=== PATIENT | female | born 1985 | race Caucasian/White ===

== ENCOUNTER 2017-12-30 23:14 | Emergency (ER) | payer OTHER ==
--- NOTE | 2017-12-31 00:21 | EDPHYS ---
Physician Documentation [facility] Name: Fabiola Espana Age: 32 yrs Sex: Female : 1985 Arrival Date: 12/30/2017 Time: 23:16 Bed 26 Private MD: ED Physician Marvin Block HPI: 12/30 23:59 This 32 yrs old Female presents to ER via Wheelchair with complaints of Fall rn Injury. 23:59 Details of fall: The patient fell from a height, down approximately 3 stairs. Onset: rn The symptoms/episode began/occurred just prior to arrival. Associated injuries: The patient sustained RLE. Severity of symptoms: At their worst the symptoms were moderate, in the emergency department the symptoms are unchanged. The patient has not experienced similar symptoms in the past. The patient has not recently seen a physician. Reports misstep, on stairs, fell down 3, only pain to LLE, no LOC, no head injury, hurts to walk and move ankle.. 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 - Social history:: Smoking status: Patient/guardian denies using tobacco, Patient/guardian denies using alcohol, street drugs. - Family history:: not pertinent. - Hospitalizations: : No recent hospitalization is reported. ROS: 23:59 Constitutional: Negative for fever, chills, and weight loss, Neck: Negative for injury, rn pain, and swelling, Cardiovascular: Negative for chest pain, palpitations, and edema, Respiratory: Negative for shortness of breath, cough, wheezing, and pleuritic chest pain, Abdomen/GI: Negative for abdominal pain, nausea, vomiting, diarrhea, and constipation, Back: Negative for injury and pain, MS/Extremity: Negative for deformity, Skin: Negative for injury, rash, and discoloration, Neuro: Negative for headache, weakness, numbness, tingling, and seizure. Exam: 23:59 Constitutional: This is a well developed, well nourished patient who is awake, alert, rn and in no acute distress. MS/ Extremity: Pulses equal, no cyanosis. Neurovascular intact. Painful ROM right ankle, + tenderness right distal thrid of fibula. Vital Signs: 23:37 BP 136 / 102; Pulse 91; Resp 20 S; Temp 98.5(O); Pulse Ox 98% on R/A; Weight 68.04 kg bb (R); Height 5 ft. 6 in. (167.64 cm) (R); Pain 9/10; 12/31 00:05 BP 145 / 96; Pulse 77; Resp 18; Pulse Ox 100% on R/A; tl3 12/30 23:37 Body Mass Index 24.21 (68.04 kg, 167.64 cm) bb MDM: 12/30 23:50 Patient medically screened. rn 12/31 00:19 Differential diagnosis: contusion, fracture, sprain. Data reviewed: vital signs, nurses rn notes, radiologic studies, plain films, and as a result, I will discharge patient. Counseling: I had a detailed discussion with the patient and/or guardian regarding: the historical points, exam findings, and any diagnostic results supporting the discharge/admit diagnosis, radiology results, the need for outpatient follow up, to return to the emergency department if symptoms worsen or persist or if there are any questions or concerns that arise at home. Special discussion: I discussed with the patient/guardian in detail that at this point there is no indication for admission to the hospital. It is understood, however, that if the symptoms persist or worsen the patient needs to return immediately for re-evaluation. Based on the history and exam findings, there is no indication for further emergent testing or inpatient evaluation. I discussed with the patient/guardian the need to see the orthopedic surgeon for further evaluation of the symptoms. 12/30 23:54 Order name: XRAY Tib Fib RIGHT rn Administered Medications: No medications were administered Disposition: 12/31/17 00:20 Discharged to Home. Impression: Sprain of ankle. - Condition is Stable. - Discharge Instructions: Ankle Sprain, Contusion. - Medication Reconciliation Form, Thank You Letter, Antibiotic Education, Prescription Opioid Use form. - Follow up: Private Physician; When: As needed; Reason: Recheck today's complaints, Re-evaluation by your physician. - Problem is new. - Symptoms have improved. Signatures: Dispatcher [employer] Kecia Hernandez RN RN Marvin Clarke MD MD rn Pena, Laura, RN RN lp1 Corrections: (The following items were deleted from the chart) 00:19 00:19 Special discussion: I discussed with the patient/guardian in detail that at this rn point there is no indication for admission to the hospital. It is understood, however, that if the symptoms persist or worsen the patient needs to return immediately for re-evaluation. rn
--- NOTE | 2017-12-31 00:21 | ER ---
Nurse's Notes [facility] Name: Fabiola Espana Age: 32 yrs Sex: Female : 1985 Arrival Date: 12/30/2017 Time: 23:16 Bed 26 Private MD: Diagnosis: Sprain of ankle Presentation: 12/30 23:35 Presenting complaint: Patient states: she fell down 2 or 3 steps off of her porch bb injuring right lower leg pain to leg is 9/10 denies hitting her head or any LOC. Transition of care: patient was not received from another setting of care. Onset of symptoms was December 30, 2017. Initial Sepsis Screen: Does the patient meet any 2 criteria? No. Patient's initial sepsis screen is negative. Does the patient have a suspected source of infection? No. Patient's initial sepsis screen is negative. Care prior to arrival: None. 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 - Social history:: Smoking status: Patient/guardian denies using tobacco, Patient/guardian denies using alcohol, street drugs. - Family history:: not pertinent. - Hospitalizations: : No recent hospitalization is reported. Screenin:36 Abuse screen: Denies threats or abuse. Nutritional screening: No deficits noted. tl3 Tuberculosis screening: No symptoms or risk factors identified. Fall Risk None identified. Assessment: 23:36 General: Appears uncomfortable, well groomed, well developed, well nourished, Behavior tl3 is calm, cooperative, appropriate for age. Pain: Complains of pain in lateral aspect of right calf, right ankle, right Achilles and anterior aspect of right ankle. Neuro: Level of Consciousness is awake, alert, obeys commands, Oriented to person, place, time, situation, Appropriate for age. Cardiovascular: Heart tones S1 S2 present. Respiratory: Airway is patent Trachea midline Respiratory effort is even, unlabored, Respiratory pattern is regular, symmetrical, Breath sounds are clear bilaterally. GI: No signs and/or symptoms were reported involving the gastrointestinal system. : No signs and/or symptoms were reported regarding the genitourinary system. EENT: No signs and/or symptoms were reported regarding the EENT system. Derm: No signs and/or symptoms reported regarding the dermatologic system. Musculoskeletal: Capillary refill < 3 seconds, in bilateral toes. Reports pain in right ankle, right Achilles and anterior aspect of right ankle since fell and twisted foot/ankle small abrasion to top of left foot, greatest pain to right foot, pedal pulses 2+ bilaterally. 12/31 00:05 Reassessment: Patient appears in no apparent distress at this time. No changes from tl3 previously documented assessment. Patient and/or family updated on plan of care and expected duration. Pain level reassessed. Patient is alert, oriented x 3, equal unlabored respirations, skin warm/dry/pink. x-ray complete. Vital Signs: 12/30 23:37 BP 136 / 102; Pulse 91; Resp 20 S; Temp 98.5(O); Pulse Ox 98% on R/A; Weight 68.04 kg bb (R); Height 5 ft. 6 in. (167.64 cm) (R); Pain 9/10; 12/31 00:05 BP 145 / 96; Pulse 77; Resp 18; Pulse Ox 100% on R/A; tl3 12/30 23:37 Body Mass Index 24.21 (68.04 kg, 167.64 cm) ED Course: 12/30 23:16 Patient arrived in ED. ds1 23:36 Alessandra Levy, RN is Primary Nurse. tl3 23:36 Triage completed. bb 23:36 Patient has correct armband on for positive identification. Bed in low position. Call tl3 light in reach. Side rails up X 1. Adult w/ patient. 23:36 No provider procedures requiring assistance completed. tl3 23:37 Arm band placed on Patient placed in an exam room, on a stretcher, on pulse oximetry. bb Family accompanied patient. 23:50 Marvin Block MD is Attending Physician. rn 12/31 00:46 Patient did not have IV access during this emergency room visit. lp1 02:15 XRAY Tib Fib RIGHT In Process Unspecified. EDMS Administered Medications: No medications were administered Outcome: 00:20 Discharge ordered by . rn 00:47 Discharged to home via wheelchair. lp1 00:47 Condition: good 00:47 Discharge instructions given to patient, Instructed on discharge instructions, follow up and referral plans. Demonstrated understanding of instructions, follow-up care. 00:48 Patient left the ED. lp1 Signatures: Dispatcher [employer] EDMS Cristina Gibson ds1 Kecia Woodward, RN RN bb Marvin Block MD MD rn Pena, Laura RN RN lp1 Alessandra Levy RN RN tl3
--- NOTE | 2017-12-31 10:09 | RAD REPORT ---
EXAM DESCRIPTION: RAD - Tib Fib Right - 12/31/2017 2:14 am CLINICAL HISTORY: Fall, leg pain COMPARISON: None. FINDINGS: No fracture is identified. There is no dislocation or periosteal reaction noted. No acute or suspicious bony finding. No foreign body or other soft tissue abnormality. IMPRESSION: Negative right tibia & fibula examination.
== END 2017-12-31 00:48 | disposition home or self-care (01) ==
LOC: ER 23:14
DX: S93.402A Sprain of unspecified ligament of left ankle, initial encounter (principal); W10.9XXA Fall (on) (from) unspecified stairs and steps, initial encounter; Y93.01 Activity, walking, marching and hiking; Y92.9 Unspecified place or not applicable; Z91.013 Allergy to seafood; Z91.048 Other nonmedicinal substance allergy status; F41.9 Anxiety disorder, unspecified
CPT/HCPCS: 99283